=== PATIENT | female | born 1995 | race Caucasian/White ===

== ENCOUNTER 2017-02-12 07:13 | Outpatient (CLI) ==
[2015-09-24 07:08] VITALS: BMI 31.5
--- NOTE | 2017-02-12 08:32 | US ---
EXAM: Right upper quadrant abdominal ultrasound. History: Right upper quadrant abdominal pain. Comparison: CT abdomen pelvis 09/29/2010 Technique: Multiple sonographic images through the abdomen were obtained. Color duplex Doppler was used to interrogate vascular flow. Findings: The liver is not enlarged according to the sonographic measurement given. Liver is diffuse ly echogenic and demonstrates coarsened echotexture. There is antegrade flow within the main portal vein. There are two solid liver lesions with the largest measuring 3.5 cm. No abdominal ascites. Li mited visualization of the right kidney demonstrates no evidence for hydronephrosis. No shadowing ga llstones. Gallbladder wall is not thickened. Common bile duct measures 0.3 cm in caliber. The visu alized pancreas demonstrates no gross abnormality. Impression: 1. Solid liver lesions could be benign or malignant. Recommend further evaluation with liver MRI pr otocol. 2. Fatty liver.
== END 2017-02-12 07:14 | disposition home or self-care (01) ==
LOC: RAD 07:13
PROVIDERS: ATTEND Family Medicine
DX: R10.11 Right upper quadrant pain (principal)

== ENCOUNTER 2017-02-22 12:59 | Outpatient (CLI) ==
[2015-09-24 07:08] VITALS: BMI 31.5
[2017-02-22 13:27] LABS: CREATININE 0.68 mg/dL (0.60-1.30)
--- NOTE | 2017-02-22 16:26 | MRI ---
EXAM: MRI abdomen without and with contrast HISTORY: Abnormal liver ultrasound TECHNIQUE: Multiplanar, multisequence without and following the administration of intravenous Omnisc an, 16 mL COMPARISON: Ultrasound from 02/12/2017 FINDINGS: The heart size is normal. No pericardial or pleural effusions are detected. There is diffuse loss of signal within the inner parenchyma on the opposed phase images as compared i n-phase images. There is focal sparing in the left hepatic lobe adjacent to the gallbladder fossa. A subtle ovoid lesion measuring 2.3 x 3.4 cm is detected in hepatic segment 4b/5. This has central en hancement and it is difficult to detect on most imaging sequences. No other hepatic lesions are evid ent. The portal and hepatic veins are patent. The spleen has normal size and signal. The upper lob e are normal. The pancreas enhances normally. The gallbladder is present and is free intraluminal f illing defects. No biliary dilatation is detected. The kidneys are normal. The renal collecting sy stems are nondilated. The visible intestines have normal signal caliber without evidence of obstruct ion or acute inflammation. No lymphadenopathy or ascites are detected. Aorta has normal caliber and flow signal. The bone marrow signal intensity is normal. IMPRESSION: 1. Focal fatty sparing accounting for one of the lesions on ultrasound in the left hepatic lobe. 2. Probable focal nodular hyperplasia in hepatic segment 4b/5. 3. Diffuse hepatic steatosis.
== END 2017-02-22 13:00 | disposition home or self-care (01) ==
LOC: RAD 12:59
PROVIDERS: ATTEND Family Medicine
DX: R16.0 Hepatomegaly, not elsewhere classified (principal)
CPT/HCPCS: 36415; 82565

== ENCOUNTER 2017-09-14 10:20 | Outpatient (CLI) | payer OTHER ==
[2015-09-24 07:08] VITALS: BMI 31.5
--- NOTE | 2017-09-14 11:33 | DI ---
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 There is no pleural effusion or pneumothorax. The heart is normal i n size. The mediastinal contour is normal. There are no acute abnormalities of the bones. IMPRESSION: No acute cardiopulmonary process.
== END 2017-09-14 10:21 | disposition home or self-care (01) ==
LOC: RAD 10:20
PROVIDERS: ATTEND General Practice
DX: R76.11 Nonspecific reaction to tuberculin skin test without active tuberculosis (principal)